=== PATIENT | female | born 1970 | race Caucasian/White ===

== ENCOUNTER 2022-09-11 11:59 | Outpatient (CLI) | payer OTHER | END 2022-09-11 12:00 | disposition home or self-care (01) | LOC: NAV OCC 11:59 → NAV RAD 12:00 | PROVIDERS: ATTEND Family Medicine | DX: M54.41 Lumbago with sciatica, right side (principal); M54.42 Lumbago with sciatica, left side; M47.816 Spondylosis without myelopathy or radiculopathy, lumbar region | CPT/HCPCS: 72100 ==